=== PATIENT | female | born 1985 | race African-American/Black ===

== ENCOUNTER → 2018-10-06 | Outpatient (CLI) | payer BC ==
[2015-08-05 12:11] VITALS: BP 154/90
[~2018-10-06] MED LIST: CONTRAST GIVEN. MC PRN; IOHEXOL 300 MG/ML 50 ML VIAL. IJ ONE; METR500T PO; VALA10005 PO
[2018-10-06 14:24] LABS: PREG TEST PT QUAL NEGATIVE (NEG)
--- NOTE | 2018-10-06 16:11 | RAD ---
Clinical indications: Infertility. Trying to get for one year. Anovulation. Procedure: The procedure and possible complications including bleeding and infection and allergic reaction were explained to the patient. Preprocedure serum test was negative. The patient provided both verbal and written consent. Timeout was performed which confirmed the name of the patient and the date of and the type of procedure. Allergies to medications were reviewed. Using sterile technique, a vaginal speculum was inserted and the external cervical os was identified and cleansed with Betadine. Subsequently, using sterile technique, a balloon catheter was inserted into the cervical canal. It could not be advanced any further. The balloon was inflated. A total of 20 cc of Omnipaque-300 was injected and multiple fluoroscopic spot hysterosalpingogram images were taken. The balloon was deflated and the catheter and speculum were removed. The patient tolerated the procedure well without complication and no allergic reaction was noted. The patient was instructed to go to the emergency room if she developed new onset of abdominal pain or fever/chills or vaginal bleeding. Total fluoroscopic time: 1.0 minutes. Total fluoroscopic spot images: 16. Findings: The endometrial canal fills out normally and no filling defects are evident. No contrast opacification of the right fallopian tube is seen. The left fallopian tube partially post contrast but no free spillage from the left fallopian tube is seen. IMPRESSION: Occluded right fallopian tube. Partial filling of the left fallopian tube to the infundibulum without free spillage. Therefore, complete patency of the left tube cannot be confirmed by HSG. Electronically signed by: Yariel Huang MD (10/06/2018 4:08 PM) [facility]
== END ==
LOC: RAD 13:26
PROVIDERS: ATTEND Obstetrics & Gynecology
DX: N97.1 Female infertility of tubal origin (principal)
CPT/HCPCS: 58340; 74740; 84703; Q9967